=== PATIENT | male | born 1935 | race Caucasian/White ===

== ENCOUNTER 2017-06-20 12:52 | Observation (INO) | payer MEDICARE, OTHER ==
--- NOTE | 2017-06-20 13:50 | Emergency Department Record ---
History of Present Illness - General Chief complaint: Extremity Problem Stated complaint: SWOLLEN RT HAND Time Seen by Provider: 06/20/17 13:36 Source: Patient Mode of Arrival: Ambulatory Limitations: No limitations - History of Present Illness Initial comments: The patient is here due to diffuse R hand pain and swelling for 4 days. He denies any fall or trauma or bee sting. The patient states he has had similar issues in the past but not quite this bad. The main swelling is over the R 2nd finger. MD Complaint: Extremity pain Onset/Timin -: Days(s) Location: Right, Hand Radiation: Proximal Severity scale (1-10): 6 Quality: Aching Consistency: Constant - Related Data Home Medications Medication Instructions Recorded Confirmed Last Taken Ascorbic Acid [Vitamin C] 500 mg PO DAILY 06/20/17 06/20/17 1 Day Ago ~06/19/17 Atorvastatin Calcium 20 mg PO DAILY 06/20/17 06/20/17 1 Day Ago ~06/19/17 Bromelains 500 mg PO BID 06/20/17 06/20/17 1 Day Ago ~06/19/17 Cholecalciferol (Vitamin D3) 2,000 unit PO DAILY 06/20/17 06/20/17 1 Day Ago [Vitamin D3] ~06/19/17 Levothyroxine Sodium [Synthroid] 125 mcg PO DAILY 06/20/17 06/20/17 1 Day Ago ~06/19/17 Lisinopril [Prinivil] 2.5 mg PO DAILY 06/20/17 06/20/17 1 Day Ago ~06/19/17 Magnesium Oxide [Magnesium] 400 mg PO DAILY 06/20/17 06/20/17 1 Day Ago ~06/19/17 Metformin HCl [Metformin HCl ER] 750 mg PO BID 06/20/17 06/20/17 1 Day Ago ~06/19/17 Mirtazapine [Remeron] 15 mg PO QHS 06/20/17 06/20/17 1 Day Ago ~06/19/17 [place]-3 Fatty Acids/Fish Oil [Fish 1 each PO BID 06/20/17 06/20/17 1 Day Ago Oil 1,000 mg Capsule] ~06/19/17 Rivaroxaban [Xarelto] 20 mg PO DAILY 06/20/17 06/20/17 1 Day Ago ~06/19/17 Vitamin E 400 unit PO DAILY 06/20/17 06/20/17 1 Day Ago ~06/19/17 Zinc 50 mg PO DAILY 06/20/17 06/20/17 1 Day Ago ~06/19/17 Allergies Allergy/AdvReac Type Severity Reaction Status Date / Time morphine Allergy ALTERED Verified 06/20/17 13:21 MENTAL STATUS Travel Screening - Travel/Exposure Within Last 30 Days Have you traveled within the last 30 days?: No - Travel/Exposure Within Last Year Have you traveled outside the [place] in the last year?: No - Additonal Travel Details Have you been exposed to anyone with a communicable illness?: No - Travel Symptoms Symptom Screening: None Review of Systems Constitutional: Denies: Chills, Fever Eyes: Denies: Eye discharge ENT: Denies: Congestion Respiratory: Denies: Cough, Dyspnea Cardiovascular: Denies: Arrhythmia, Chest pain Endocrine: Denies: Fatigue Gastrointestinal: Denies: Abdominal pain Genitourinary: Denies: Dysuria Musculoskeletal: Denies: Arthralgia Past Medical History - SOCIAL HISTORY Smoking Status: Never smoker Alcohol Use: None Drug Use: None - RESPIRATORY Hx Respiratory Disorders: No - CARDIOVASCULAR Hx Cardio Disorders: No - NEURO Hx TIA: Yes (many years ago) - GI Hx GI Disorders: No - Hx Genitourinary Disorders: No - ENDOCRINE Hx Diabetes: Yes Hx Thyroid Disease: Yes - MUSCULOSKELETAL Hx Arthritis: Yes - PSYCH Hx Psych Problems: No - HEMATOLOGY/ONCOLOGY Hx Hematology/Oncology Disorders: Yes Hx Cancer: Yes (scalp) Family Medical History Any Significant Family History?: Yes Physical Exam - General General Appearance: Alert, Oriented x3, Cooperative, No acute distress - Head Head exam: Atraumatic, Normocephalic, Normal inspection - Eye Eye exam: Normal appearance, PERRL - ENT Throat exam: Normal inspection. negative: Tonsillar erythema, Tonsillar exudate - Neck Neck exam: Normal inspection, Full ROM. negative: Tenderness - Respiratory Respiratory exam: Normal lung sounds bilaterally. negative: Respiratory distress - Cardiovascular Cardiovascular Exam: Regular rate, Normal rhythm, Normal heart sounds - GI/Abdominal GI/Abdominal exam: Soft. negative: Tenderness - Extremities Extremities exam: Tenderness. negative: Normal inspection (There was diffuse swelling, erythema, and edema to the hand and fingers greatest over the R 2nd finger. There is decreased ROM of the 2nd finger due to pain.), Full ROM, Joint swelling - Neurological Neurological exam: Alert, Normal gait. negative: Abnormal gait, Motor sensory deficit Course Vital Signs 06/20/17 13:09 Temperature 98.7 F Pulse Rate 82 Respiratory 16 Rate Blood Pressure 120/67 Pulse Ox 97 - Reevaluation(s) Reevaluation #1: The patient is resting comfortably with no changes. I did review his lab work and it does appear that his kidney function is extremely compromised. His Creatinine is up to 2.8 from 1.4 in March of this year. Additionally his Uric Acid is elevated along with the CRP and ESR. I do believe his hand issue is probably gout but with the kidney function compromised I would admit the patient overnight for monitoring and to recheck his lab work in the AM. I did discuss the case with Dr. Johnson and he does accept the admission and would like the patient on Solumedrol 60 mg TID. 06/20/17 15:37 Medical Decision Making - Data Complexity MDM Data: Labs Ordered and/or Reviewed, X-Ray Ordered and/or Reviewed - Lab Data Result diagrams: 06/20/17 14:02 06/20/17 14:02 - Radiology Data Radiology results: Report reviewed (R hand: No acute changes.) Disposition Disposition: Discharge Clinical Impression: Renal failure (ARF), acute on chronic Qualifiers: Acute renal failure type: unspecified Chronic kidney disease stage: unspecified stage Qualified Code(s): N17.9 - Acute kidney failure, unspecified Disposition: Still a Patient at [facility] Decision to Admit: Admit from ER Decision to Admit Date: 06/20/17 Decision to Admit Time: 15:39 Accepting Physician: Elizabeth Time Discussed w/Accepting Physician: 15:39 Condition: (2) Stable Time of Disposition: 15:39 Quality - Quality Measures Quality Measures: N/A - Blood Pressure Screening View Details: Yes Does Patient Have Any of the Following: No Blood Pressure Classification: Pre-Hypertensive BP Reading Systolic Measurement: 120 Diastolic Measurement: 67 Screening for High Blood Pressure: < Pre-Hypertensive BP, F/U Documented > [ [id number]] Pre-Hypertensive Follow-up Interventions: Referral to alternative/primary care provider.
[2017-06-20 14:18] LABS: BASO % 0.5 % (0-6); EOS % 3.5 % (0-6); GRAN % 68.8 % (47-80); HEMATOCRIT 29.8 % (42.0-52.0); HEMOGLOBIN 9.9 gm/dl (14.0-18.0); LYMPH % 16.6 % (16-45); MEAN CELL VOLUME 86.6 fl (81-97); MEAN CORPUSCULAR HGB CONC 33.2 g/dl (32-36); MEAN PLATELET VOLUME 8.6 fl (7.4-10.4); MONO % 10.6 % (0-9); PLATELET COUNT 317 K/uL (130-400); RED BLOOD COUNT 3.44 M/uL (4.40-5.70); RED CELL DISTRIBUTION WIDTH 12.8 % (11.5-14.5); WHITE BLOOD COUNT W/O DIFF 8.4 K/uL (4.2-12.2)
[2017-06-20 14:23] LABS: MEAN CORPUSCULAR HEMOGLOBIN 28.7 pg (27-33)
[2017-06-20 14:34] LABS: ALB/GLOB RATIO 1.2 (1.1-1.8); ALBUMIN 3.8 gm/dL (3.5-5.0); ANION GAP 9.5 (7-16); BILIRUBIN,TOTAL 0.77 mg/dL (0.2-1.3); C-REACTIVE PROTEIN 8.5 mg/dL (0.0-0.9); CARBON DIOXIDE 22.5 mmol/L (22-30); CREATININE 2.8 mg/dL (0.66-1.25)
[2017-06-20] MEDS ORDERED: 0.9 % SODIUM CHLORIDE 1,000 ML BAG IV ONE (14:57)
[2017-06-20 15:10] LABS: ERYTHROCYTE SEDIMENTATION RATE 71 mm/hr (0-20)
[2017-06-20] MEDS ORDERED: CEFTRIAXONE SODIUM 1 GM in 0.9 % SODIUM CHLORIDE 100ML 100 ML IVPB ONE (15:24)
[2017-06-20] MEDS ORDERED: METHYLPREDNISOLONE PF 125MG/VIAL IVP ONE (15:25)
[2017-06-20 15:43] LABS: INR 1.36; PARTIAL THROMBOPLASTIN TIME 40.1 SECONDS (24.5-39.1); PROTHROMBIN TIME (PATIENT) 14.7 SECONDS (9.5-12.1)
[2017-06-20 16:17] LABS: URINE APPEARANCE SL CLOUDY; URINE BILIRUBIN NEGATIVE (NEGATIVE); URINE BLOOD TRACE-I (NEGATIVE); URINE COLOR YELLOW; URINE GLUCOSE (UA) NEGATIVE (NEGATIVE); URINE KETONE NEGATIVE (NEGATIVE); URINE LEUKOCYTE ESTERASE NEGATIVE (NEGATIVE); URINE NITRITE NEGATIVE (NEGATIVE); URINE PROTEIN NEGATIVE (NEGATIVE); URINE UROBILINOGEN 0.2 E.U./dL (0.20 - 1.00)
[2017-06-20 16:26] LABS: URINE RBC 0 - 2 (NONE SEEN)
[2017-06-20 16:27] LABS: URINE BACTERIA NONE SEEN; URINE EPITHELIAL CELLS 0 - 2 (FEW); URINE WBC NONE SEEN (0-2/hpf)
[2017-06-20] MEDS ORDERED: 0.9 % SODIUM CHLORIDE 1000ML 1,000 ML IV PRN (17:55)
[2017-06-20] MEDS ORDERED: ACETAMINOPHEN 500 MG TABLET PO PRN (17:55)
[2017-06-20] MEDS: METHYLPREDNISOLONE PF 125MG/VIAL IVP SCH (18:52)
[2017-06-20] MEDS ORDERED: MIRTAZAPINE 15 MG TABLET PO SCH (22:00)
[2017-06-20] MEDS ORDERED: METFORMIN HCL 750 MG PO SCH (22:00)
[2017-06-21] MEDS: METHYLPREDNISOLONE PF 125MG/VIAL IVP SCH (03:41)
[2017-06-21 06:33] LABS: HEMATOCRIT 29.5 % (42.0-52.0); HEMOGLOBIN 9.9 gm/dl (14.0-18.0); LYMPH % 13.8 % (16-45); MEAN CELL VOLUME 85.3 fl (81-97); MEAN CORPUSCULAR HEMOGLOBIN 28.6 pg (27-33); MEAN CORPUSCULAR HGB CONC 33.6 g/dl (32-36); MEAN PLATELET VOLUME 8.7 fl (7.4-10.4); MONO % 1.1 % (0-9); PLATELET COUNT 304 K/uL (130-400); RED BLOOD COUNT 3.46 M/uL (4.40-5.70); RED CELL DISTRIBUTION WIDTH 12.6 % (11.5-14.5); WHITE BLOOD COUNT W/O DIFF 6.2 K/uL (4.2-12.2)
--- NOTE | 2017-06-21 09:19 | Discharge Note ---
VTE H&P Assessment - Risk for VTE Risk for VTE: Yes Risk Level: Moderate Risk Assessment Date: 06/20/17 (patient on xarelto for PE) Risk Assessment Time: 22:00 VTE Orders Placed or Will Be Placed: Yes Discharge Medications - Discharge Medications Prescriptions: Prednisone [Prednisone 20Mg] 20 mg PO BID #10 tab Home Medications: Ambulatory Orders Ascorbic Acid [Vitamin C] 500 mg PO DAILY 06/20/17 [Last Taken 1 Day Ago ~] Atorvastatin Calcium 20 mg PO DAILY 06/20/17 [Last Taken 1 Day Ago ~06/19/17] Bromelains 500 mg PO BID 06/20/17 [Last Taken 1 Day Ago ~06/19/17] Cholecalciferol (Vitamin D3) [Vitamin D3] 2,000 unit PO DAILY 06/20/17 [Last Taken 1 Day Ago ~06/19/17] Levothyroxine Sodium [Synthroid] 125 mcg PO DAILY 06/20/17 [Last Taken 1 Day Ago ~06/19/17] Lisinopril [Prinivil] 2.5 mg PO DAILY 06/20/17 [Last Taken 1 Day Ago ~06/19/17] Magnesium Oxide [Magnesium] 400 mg PO DAILY 06/20/17 [Last Taken 1 Day Ago ~09/25] Metformin HCl [Metformin HCl ER] 750 mg PO BID 06/20/17 [Last Taken 1 Day Ago ~ 06/19/17] Mirtazapine [Remeron] 15 mg PO QHS 06/20/17 [Last Taken 1 Day Ago ~06/19/17] [place]-3 Fatty Acids/Fish Oil [Fish Oil 1,000 mg Capsule] 1 each PO BID 06/20/17 [Last Taken 1 Day Ago ~06/19/17] Rivaroxaban [Xarelto] 20 mg PO DAILY 06/20/17 [Last Taken 1 Day Ago ~06/19/17] Vitamin E 400 unit PO DAILY 06/20/17 [Last Taken 1 Day Ago ~06/19/17] Zinc 50 mg PO DAILY 06/20/17 [Last Taken 1 Day Ago ~06/19/17] Prednisone [Prednisone 20Mg] 20 mg PO BID #10 tab 06/21/17 [Last Taken Unknown] Discharge Note - Date Date of Discharge Note: 06/21/17 Disposition: Home, Self-Care Condition: (2) Stable Additional Instructions: follow up with Dr. Olvera in 2-3 days. heat to finger three times a day. take prednisone twice a day for 5 days patient needs to have creatinine rechecked by Dr. Olvear. please have Dr. Olvera order that and he probably will need allupurinol than. Forms: Patient Portal Access Activity at Discharge: Increase Activity as Tolerated
[2017-06-21] MEDS ORDERED: LISINOPRIL 5 MG TABLET PO SCH (10:00)
[2017-06-21] MEDS ORDERED: ENOXAPARIN 30 MG/0.3 ML SYR SQ SCH (10:00)
[2017-06-21] MEDS ORDERED: LEVOTHYROXINE SODIUM 125 MCG TABLET PO SCH (10:00)
[2017-06-21] MEDS ORDERED: RIVAROXABAN 20 MG TABLET PO SCH (10:00)
--- NOTE | 2017-06-22 07:29 | RADIOLOGY REPORT ---
EXAM: RIGHT HAND, THREE VIEWS HISTORY: UNEXPLAINED REDNESS AND SWELLING, HISTORY OF GOUT. TECHNIQUE: Three views of the right hand were provided along with the comparison study dated 07/02/09. FINDINGS: There is no radiographic evidence of an acute fracture or dislocation of the right hand. Contour irregularity of the distal right third phalangeal tuft is consistent with traumatic amputation that could be seen on the prior examination. Radiopaque foreign bodies are identified within the soft tissue at the dorsal aspect of the third digit and fourth digit. Osteoarthritic changes of the distal interphalangeal joints and first carpal metacarpal joint are again identified. Radiopaque foreign bodies are also identified in the soft tissues surrounding the first metacarpal phalangeal joint. IMPRESSION: OSTEOARTHRITIC CHANGES OF THE RIGHT HAND ARE NOTED WITHOUT RADIOGRAPHIC EVIDENCE OF A FRACTURE OR DISLOCATION OF THE RIGHT HAND. JOB NUMBER: [id number] MTDD
--- NOTE | 2017-06-22 09:50 | History and Physical Report ---
DATE OF EVALUATION: 06/21/2017 DATE OF ADMISSION: 06/20/2017 CHIEF COMPLAINT: Right hand pain and swelling; renal failure, [id number]. Creatinine is 2.8. Uric acid is elevated at 9.6. HISTORY OF PRESENT ILLNESS: This 81-year-old male presented to the Emergency Department, seen by Dr. Ballard with the right hand swollen and painful. Laboratory status showed the creatinine at 2.8. Previous creatinine was 1.[address] Ballard was concerned of impending renal failure and the need for possible dialysis, and put him in the hospital for observation, to repeat his labs, and to see if his hand gets better. His uric acid was elevated at 9.6. Today, the hand is much better. There is pain at the right second finger DIP joint. The swelling is at least 50% to 75% better. He was given Solu-Medrol in the Emergency Department with Rocephin 1 gram. PAST MEDICAL HISTORY: He has prostatic cancer, TIA, scalp cancer, PE in 2012 and on Xarelto, diabetes mellitus type 2, hypothyroidism, arthritis, and gout in the past. PAST SURGICAL HISTORY: Left hip replacement in March 2017. Hernia x 2. MEDICATIONS ON ADMISSION: Xarelto 20 mg daily, zinc 50 mg daily, vitamin E 400 units daily, Mag-Ox 400 daily, vitamin D3 2000 units daily, bromelains 500 mg b.i.d., vitamin C 500 mg daily, [place] fatty acids 1000 mg 1 b.i.d., metformin extended-release 750 b.i.d., lisinopril 2.5 daily, Remeron 15 mg at bedtime, Synthroid 125 mcg daily, and atorvastatin 20 mg daily. ALLERGIES: Morphine. SOCIAL HISTORY: Never smoked. No alcohol or drug use. FAMILY HISTORY: Unremarkable. REVIEW OF SYSTEMS: HEENT: No upper respiratory infection symptoms, cough, cold, or congestion. Cardiovascular: No chest pain, palpitations, or arrhythmias. Respiratory: No cough, cold or congestion. Gastrointestinal: No nausea, vomiting, diarrhea, black stools, or bloody stools. Genitourinary: No dysuria, hematuria, frequency, or burning on urination. He does urinate frequently is what he told me, but he has had prostatic cancer in the past. Sees Dr. Smith for that. Musculoskeletal: See Chief Complaint. The right second finger is painful and swollen at the DIP joint, and his whole hand was swollen too from this. Skin: There are no abnormal skin lesions, rash, ulcers or yellow skin. Endocrine: He has diabetes mellitus type 2, hypothyroidism, and he has arthritis. Previous history of gout. No diabetes or thyroid disease. I PHYSICAL EXAMINATION: VITAL SIGNS: Height 5'7". Weight 169 pounds. Temperature 98.2. Pulse 79. Blood pressure 120/66. Respiratory rate 18. Pulse ox 96% on room air. HEENT: Pupils equal, round, and reactive to light and accommodation. Extraocular muscles intact. Throat is clear. Nose is clear. Tympanic membranes bowles. NECK: Supple. No jugular venous distention. No hepatojugular reflux. Carotids are equal bilaterally. No thyroid masses noted. CARDIOVASCULAR: Regular rate and rhythm without murmurs, clicks, rubs, or gallops. RESPIRATORY: Clear to auscultation. Breath sounds equal bilaterally. ABDOMEN: Soft, nontender, no hepatosplenomegaly. No tenderness on palpation in all 4 quadrants. EXTREMITIES: No pitting edema. No cyanosis or clubbing. Full range of motion. Peripheral pulses good. GENITALIA: Deferred. RECTAL: Deferred. MENTAL STATUS: Alert and oriented x3. His part [place] and he had a relative that was part of the [place]. IMPRESSION: 1. Acute gouty arthritis of the right hand second finger DIP joint. 2. [id number] renal failure. His creatinine improved to 2 this morning with IV fluids. 3. Diabetes mellitus. 4. Hypothyroidism. 5. History of PE and on Xarelto. 6. History of prostatic cancer being treated through Dr. Smith. 7. TIA. 8. Scalp cancer, which has been removed. PLAN: Prednisone 20 mg b.i.d. for 5 days. Follow up with Dr. Olvera, his family doctor. Will prepare him for discharge. He is to drink lots of fluids. MTDD
--- NOTE | 2017-06-22 12:10 | Discharge Summary ---
OBSERVATION PATIENT DATE OF ADMISSION: 06/20/2017 DATE OF DISCHARGE: 06/21/2017 DISCHARGE DIAGNOSES: 1. Acute gouty arthritis, right hand second finger DIP joint. 2. [id number] renal failure. 3. Creatinine on discharge was 2. It was 2.8 the day before. 4. Hypercholesterolemia. 5. Hypothyroidism. 6. Diabetes type 2. 7. History of PE and on Xarelto. 8. History of prostatic cancer, being treated by Dr. Smith. 9. History of gouty arthritis. ATTENDING PHYSICIAN: Chilango Johnson DO PRIMARY CARE PHYSICIAN: Koko Olvera MD SIGNIFICANT FINDINGS: The hand x-ray was no fracture seen. LABORATORY: In the Emergency Department, his uric acid was 9.2, elevated. His hemoglobin was 9.9. WBC was 8400; on the repeat CBC, the WBC went down to 6200. Hemoglobin was 9.9, and his potassium was 5. BUN was 43. Creatinine was 2. Glucose was up 251 because of his Solu-Medrol. Urine was negative. HOSPITAL COURSE: No fevers throughout the night, and he is doing much better. Progress of the course of therapy, the Solu-Medrol has helped dramatically, he says at least 50% to 75% better. He only has pain now mostly in the right index finger at the DIP joint, and it does not look infected. I feel at this point he can safely go home with prednisone 20 mg twice a day, and to follow up with Dr. Olvera in 3 days. Possibly will need allopurinol and recheck his kidney function. Drink plenty of fluids to flush his system out. Use heat to the finger 3 times a day, but do not burn the finger. DISCHARGE MEDICATIONS: Prednisone 20 mg b.i.d. Will continue his home medications of Xarelto 20 mg daily, zinc 50 mg daily, vitamin E 400 units daily, Mag-Ox 400 mg daily, D3 2000 units daily, bromelain 500 mg b.i.d., vitamin C 500 mg daily, [place] 3 1000 mg b.i.d., metformin extended-release 750 b.i.d., lisinopril 2.5 daily, Remeron 50 mg at bedtime, levothyroxine 125 mcg daily, and atorvastatin 20 mg daily. CC: Koko Olvera MD [facility] MED[facility] CENTERAlyson
== END 2017-06-21 10:40 | disposition home or self-care (01) ==
LOC: ER 12:52 → MEDSURG 15:57
PROVIDERS: ADMIT Emergency Medicine; ATTEND Emergency Medicine
DX: M10.041 Idiopathic gout, right hand (principal); N17.9 Acute kidney failure, unspecified; N18.9 Chronic kidney disease, unspecified; E11.9 Type 2 diabetes mellitus without complications; Z79.84 Long term (current) use of oral hypoglycemic drugs; Z86.73 Personal history of transient ischemic attack (TIA), and cerebral infarction without residual deficits; E03.9 Hypothyroidism, unspecified; E78.00 Pure hypercholesterolemia, unspecified; Z86.711 Personal history of pulmonary embolism; Z79.01 Long term (current) use of anticoagulants; Z85.46 Personal history of malignant neoplasm of prostate
CPT/HCPCS: 80048; 80053; 81001; 84550; 85025; 85027; 85610; 85651; 85730; 86140; 96365; 96375; 99220; 99285; J2930; J7030